=== PATIENT | female | born 1965 | race African-American/Black ===

== ENCOUNTER 2018-11-21 08:46 | Emergency (ER) | payer MEDICARE, OTHER ==
[~2018-11-21] VITALS: Ht 162.6 cm; Wt 53.0 kg
[~2018-11-21 08:46] MED LIST: ATENOLOL; DILANTIN; FC; SOMA; TYLENOL #4
[2018-11-21] MEDS ORDERED: IBUPROFEN 600MG TABLET PO STA (09:17)
[2018-11-21] MEDS ORDERED: OXYCODONE HCL/ACETAMINOPHEN 5/325MG TABLET PO ONE (09:30)
[2018-11-21 09:34] LABS: EOSINOPHILS % 1.1 % (0.0-5.0); HEMATOCRIT. 40.6 % (36.0-48.0); HEMOGLOBIN. 13.1 g/dL (12.0-16.0); LYMPHOCYTES % 34.7 % (20.0-50.0); MEAN CORPUSCULAR HEMOGLOBIN 24.1 pg (28.0-32.0); MEAN CORPUSCULAR VOLUME 74.8 fL (81.0-99.0); MEAN PLATELET VOLUME 7.7 fl (7.4-10.4); MONOCYTES % 8.1 % (2.0-8.0); NEUTROPHILS % 55.1 % (40.0-76.0); PLATELET 188 x1000/uL (130-400); RED BLOOD CELL COUNT 5.42 mill/uL (4.2-5.4)
[2018-11-21 09:40] LABS: CHLORIDE 109 mEq/L (98-107)
[2018-11-21 09:41] LABS: INR 1.1
[2018-11-21 11:34] VITALS: BP 152/89
== END 2018-11-21 11:39 | disposition home or self-care (01) ==
LOC: ER 08:46
DX: M25.462 Effusion, left knee (principal); I10 Essential (primary) hypertension; Z98.2 Presence of cerebrospinal fluid drainage device; G40.909 Epilepsy, unspecified, not intractable, without status epilepticus
CPT/HCPCS: 36415; 73560; 80053; 85025; 85610; 93971; 99284; L1830

== ENCOUNTER 2019-01-21 15:33 | Emergency (ER) | payer MEDICARE ==
[~2019-01-21] VITALS: Ht 162.6 cm; Wt 53.0 kg
[2019-01-21] MEDS ORDERED: HYDROCODONE/ACETAMINOPHEN 5/325MG TABLET PO ONE (19:30)
[2019-01-21 20:09] VITALS: BP 164/90
== END 2019-01-21 20:18 | disposition home or self-care (01) ==
LOC: ER 16:16
DX: S43.102A Unspecified dislocation of left acromioclavicular joint, initial encounter (principal); I10 Essential (primary) hypertension; G40.909 Epilepsy, unspecified, not intractable, without status epilepticus; F17.210 Nicotine dependence, cigarettes, uncomplicated; F12.10 Cannabis abuse, uncomplicated; Z98.890 Other specified postprocedural states; V00.121A Fall from non-in-line roller-skates, initial encounter; Y93.51 Activity, roller skating (inline) and skateboarding; Y92.89 Other specified places as the place of occurrence of the external cause
CPT/HCPCS: 73030; 99283; A4565

== ENCOUNTER 2019-05-24 17:31 | Emergency (ER) | payer SELFPAY ==
[~2019-05-24] VITALS: Ht 162.6 cm; Wt 53.0 kg
[2019-05-24] MEDS ORDERED: TETANUS, DIPHTHERIA, PERTUSSIS VAC/PF 0.5ML (>7YR OLD) IM ONE (18:45)
[2019-05-24] MEDS ORDERED: BACITRACIN ZINC OINT UDPKT TOP ONE (18:45)
[2019-05-24] MEDS ORDERED: ACETAMINOPHEN WITH CODEINE 300/30MG TABLET PO ONE (18:45)
[2019-05-24 19:22] VITALS: BP 148/87
== END 2019-05-24 19:24 | disposition home or self-care (01) ==
LOC: ER 17:31
DX: S61.211A Laceration without foreign body of left index finger without damage to nail, initial encounter (principal); I10 Essential (primary) hypertension; G40.909 Epilepsy, unspecified, not intractable, without status epilepticus; F17.210 Nicotine dependence, cigarettes, uncomplicated; F12.10 Cannabis abuse, uncomplicated; Z98.2 Presence of cerebrospinal fluid drainage device; Z98.890 Other specified postprocedural states; Z71.6 Tobacco abuse counseling; W31.2XXA Contact with powered woodworking and forming machines, initial encounter; Y93.H2 Activity, gardening and landscaping; Y92.017 Garden or yard in single-family (private) house as the place of occurrence of the external cause
CPT/HCPCS: 90471; 90715; 99283; 99406

== ENCOUNTER 2020-04-23 17:10 | Emergency (ER) | payer MEDICARE ==
[~2020-04-23] VITALS: Ht 162.6 cm; Wt 60.0 kg
[2020-04-23] MEDS ORDERED: MORPHINE SULFATE 10 MG/ML CPJ IM ONE (18:45)
[2020-04-23] MEDS ORDERED: ONDANSETRON 4MG ODT PO ONE (18:45)
[2020-04-23 19:47] VITALS: BP 145/98
== END 2020-04-23 19:47 | disposition home or self-care (01) ==
LOC: ER 17:10
DX: S20.212A Contusion of left front wall of thorax, initial encounter (principal); F12.10 Cannabis abuse, uncomplicated; I10 Essential (primary) hypertension; Z98.890 Other specified postprocedural states; Z79.899 Other long term (current) drug therapy; W18.30XA Fall on same level, unspecified, initial encounter; Y93.89 Activity, other specified; Y92.89 Other specified places as the place of occurrence of the external cause; Y99.8 Other external cause status
CPT/HCPCS: 71250; 93005; 96372; 99284; J2270; Q0162

== ENCOUNTER 2022-11-26 16:19 | Emergency (ER) | payer MEDICARE ==
[~2022-11-26] VITALS: Ht 162.6 cm; Wt 50.0 kg
[~2022-11-26 16:19] MED LIST changes: +AMLO5TAB4 MT; -ATENOLOL; -DILANTIN; -FC; +HYDR-4134 MT; +KEPP500 MT; -TYLENOL #4
[2022-11-26 16:23] VITALS: BP 125/69
== END 2022-11-26 17:30 | disposition home or self-care (01) ==
LOC: ER 16:19
DX: M79.646 Pain in unspecified finger(s) (principal)
CPT/HCPCS: 99281